=== PATIENT | male | born 1975 | race Two or more races ===

== ENCOUNTER 2017-06-24 06:23 | Emergency (ER) | payer OTHER ==
[2017-06-24 06:27] VITALS: RESP 16; O2SAT 97
[2017-06-24] MEDS ORDERED: ACETAMINOPHEN 500 MG TAB PO ONE (06:40)
[2017-06-24] MEDS ORDERED: KETOROLAC 15 MG/1 ML SDV IVP ONE (06:40)
[2017-06-24] MEDS ORDERED: LIDOCAINE 1% 100 MG in NS 100 ML IV ONE (06:40)
[2017-06-24] MEDS ORDERED: NS 1,000 ML IV ONE ×2 (06:40)
[2017-06-24 06:51] LABS: % IMMATURE GRANULYOCYTES 0.2 % (0.0-1.1); ABSOLUTE IMMATURE GRANULOCYTES 0.02 10^3/uL (0.00-0.10); ADD DIFF? NO; ADD MORPH? NO; ADD SCAN? NO; ATYPICAL LYMPHOCYTE FLAG 10 (0-99); FRAGMENT RBC FLAG 0 (0-99); HEMATOCRIT 47.1 % (40.0-51.0); HEMOGLOBIN 17.2 g/dL (13.7-17.5); LEFT SHIFT FLG 0 (0-99); LIPEMIA HEMOLYSIS FLAG 90 (0-99); MEAN CELL HEMOGLOBIN 30.7 pg (27.9-34.1); MEAN CELL HEMOGLOBIN CONCENTR. 36.5 g/dL (32.4-36.7); MEAN PLATELET VOLUME 8.7 fL (8.7-11.7); PLATELET CLUMPS FLAG 0 (0-99); PLATELET COUNT 300 10^3/uL (150-400); RED BLOOD CELL COUNT 5.61 10^6/uL (4.40-6.38)
[2017-06-24 07:10] LABS: ANION GAP 14 mEq/L (8-16); CALCIUM 9.6 mg/dL (8.5-10.4); CARBON DIOXIDE 23 mEq/l (22-31); CHLORIDE 105 mEq/L (97-110); CREATININE 0.8 mg/dL (0.7-1.3); GLOMERULAR FILTRATION RATE > 60; GLUCOSE 124 mg/dL (70-100); POTASSIUM 4.1 mEq/L (3.5-5.2); SODIUM 142 mEq/L (134-144)
--- NOTE | 2017-06-24 07:11 | EDPHY ---
HPI/HX/ROS/PE/MDM Narrative: CHIEF COMPLAINT: Flank pain HPI: The patient is a 42 y/o male arriving with his complaining of waxing and waning left flank pain onset 2 hours ago. He has a history of a prior 1mm ureteral stone 2 years ago that was diagnosed on CT here and did not require intervention. He has a small amount of associated hematuria. His symptoms feel the same as his prior kidney stone. He denies abdominal pain, testicular pain, vomiting, diarrhea, fever, or other symptoms. He is otherwise healthy. REVIEW OF SYSTEMS: Aside from elements discussed in the HPI, a comprehensive 10-point review of systems was reviewed and is negative. PMH: Kidney stone Prior medical records reviewed including ED visit 02/16/15 for flank pain, kidney stone. SOCIAL HISTORY: Nonsmoker. at bedside. PHYSICAL EXAM: General:Patient is alert, in no acute distress. ENT:Eyes are normal to inspection. ENT inspection normal. Neck: Normal inspection. Full range of motion. Respiratory:No respiratory distress. Breath sounds normal bilaterally. Cardiovascular: Regular rate and rhythm. Strong peripheral pulses. Normal cap refill. Abdomen:The abdomen has mild LLQ tenderness to palpation. There are no peritoneal signs. Back: Normal to inspection. No tenderness to palpation. Skin: Normal color. No rash. Warm and dry. Extremities: Normal appearance. Full range of motion. Neuro: Oriented x3. Normal motor function. Normal sensory function. ED Course: MDM:This is a 42 y/o male who presents with left-sided flank pain and mild LLQ abdominal tenderness. His symptoms feel exactly the same as his prior kidney stone. IV established. Basic labs negtive. Patient treated with 2L IV NS, 15mg IV Toradol, 100mg IV lidocaine, and 1000mg PO Tylenol. Given hematuria, normal labs and pain consistent with kidney stone in setting of prior history, I do not think imaging is indicated. - Data Points Laboratory Results: Laboratory Results 06/24/17 06:44 06/24/17 06:44 06/24/17 06/24/17 06/24/17 08:10 06:44 06:44 WBC 8.02 10^3/uL 10^3/uL (3.80-9.50) RBC 5.61 10^6/uL 10^6/uL (4.40-6.38) Hgb 17.2 g/dL g/dL (13.7-17.5) Hct 47.1 % % (40.0-51.0) MCV 84.0 fL fL (81.5-99.8) MCH 30.7 pg pg (27.9-34.1) MCHC 36.5 g/dL g/dL (32.4-36.7) RDW 12.0 % % (11.5-15.2) Plt Count 300 10^3/uL 10^3/uL (150-400) MPV 8.7 fL fL (8.7-11.7) Neut % (Auto) 46.7 % % (39.3-74.2) Lymph % (Auto) 41.3 % % (15.0-45.0) [place] % (Auto) 9.0 % % (4.5-13.0) Eos % (Auto) 2.4 % % (0.6-7.6) Baso % (Auto) 0.4 % % (0.3-1.7) Nucleat RBC Rel Count 0.0 % % (0.0-0.2) Absolute Neuts (auto) 3.75 10^3/uL 10^3/uL (1.70-6.50) Absolute Lymphs (auto) 3.31 10^3/uL H 10^3/uL (1.00-3.00) Absolute Monos (auto) 0.72 10^3/uL 10^3/uL (0.30-0.80) Absolute Eos (auto) 0.19 10^3/uL 10^3/uL (0.03-0.40) Absolute Basos (auto) 0.03 10^3/uL 10^3/uL (0.02-0.10) Absolute Nucleated RBC 0.00 10^3/uL 10^3/uL (0-0.01) Immature Gran % 0.2 % % (0.0-1.1) Immature Gran # 0.02 10^3/uL 10^3/uL (0.00-0.10) Sodium 142 mEq/L mEq/L (134-144) Potassium 4.1 mEq/L mEq/L (3.5-5.2) Chloride 105 mEq/L mEq/L (97-110) Carbon Dioxide 23 mEq/l mEq/l (22-31) Anion Gap 14 mEq/L mEq/L (8-16) BUN 19 mg/dL mg/dL (7-23) Creatinine 0.8 mg/dL mg/dL (0.7-1.3) Estimated GFR > 60 Glucose 124 mg/dL H mg/dL (70-100) Calcium 9.6 mg/dL mg/dL (8.5-10.4) Urine Color Pending Urine Appearance Pending Urine pH Pending Ur Specific [place] Pending Urine Protein Pending Urine Ketones Pending Urine Blood Pending Urine Nitrate Pending Urine Bilirubin Pending Urine Urobilinogen Pending Ur Leukocyte Esterase Pending Urine Glucose Pending Medications Given: Discontinued Medications Acetaminophen (Tylenol) 1,000 mg PO EDNOW ONE Stop: 06/24/17 06:41 Last Admin: 06/24/17 06:56 Dose: 1,000 mg Sodium Chloride (Ns) 1,000 mls @ 0 mls/hr IV ONCE ONE; Wide Open PRN Reason: Protocol Stop: 06/24/17 06:41 Last Admin: 06/24/17 06:56 Dose: 1,000 mls Sodium Chloride (Ns) 1,000 mls @ 0 mls/hr IV ONCE ONE; Wide Open PRN Reason: Protocol Stop: 06/24/17 06:41 Last Admin: 06/24/17 06:57 Dose: 1,000 mls Lidocaine HCl 100 mg/ Sodium (Chloride) 110 mls @ 600 mls/hr IV EDNOW ONE Stop: 06/24/17 06:50 Last Admin: 06/24/17 07:54 Dose: Not Given Ketorolac Tromethamine (Toradol) 15 mg IVP EDNOW ONE Stop: 06/24/17 06:41 Last Admin: 06/24/17 06:56 Dose: 15 mg General Time Seen by Provider: 06/24/17 06:40 Initial Vital Signs: Initial Vital Signs Temperature (C) 36.7 C 06/24/17 06:24 Heart Rate 95 06/24/17 06:24 Respiratory Rate 16 06/24/17 06:24 Blood Pressure 152/97 H 06/24/17 06:24 O2 Sat (%) 97 06/24/17 06:24 O2 Delivery Mode Room Air Allergies/Adverse Reactions: No Known Allergies Allergy (Unverified 02/16/15 04:40) Home Medications: Medication Instructions Recorded Hydrocodone/APAP 5/325 [[place] 1 - 2 tab PO Q4-6PRN PRN #20 tab 02/16/15 5/325 (*)] Ibuprofen [Motrin (*)] 600 mg PO Q6PRN PRN #20 tab 02/16/15 Ondansetron Odt [Zofran Odt 4 mg 4 mg PO Q4PRN PRN #10 tab 02/16/15 (*)] Tamsulosin HCl [Flomax 0.4 MG (*)] 0.4 mg PO DAILY #4 cap 02/16/15 Ketorolac Tromethamine [Toradol] 10 mg PO Q6H #16 tab 06/24/17 oxyCODONE/APAP 5/325 [Percocet 1 - 2 tab PO Q4H PRN #10 tab 06/24/17 5/325] Departure - Departure Disposition: Home, Routine, Self-Care Clinical Impression: Kidney stone on left side Condition: Good Instructions: Kidney Stones (ED), How to Strain Your Urine (ED), Flank Pain (ED ) Additional Instructions: 1. Take Toradol as prescribed. Do not take anything containing ibuprofen (Advil ) while using this medication. 2. Percocet as needed for severe pain 3. Strain urine as directed 4. Return to the Emergency Department for uncontrollable pain, fever, or vomiting 5. Please contact the urologist you have been referred to schedule a follow-up visit. 1. [place] Toradol belrin se le receto. No tome nada que contenga ibuprpfen(Advil) mientras use reny medicamento. 2.Percocet [place] sea necesario para el dolor. 3. Filtre la [place]ina [place] se le indico. 4.Regrese al Departamento de Emergencias por dolor incontrolable, fiebre, o vomito. 5. Por favor contacte al Urologo con el cual se le refirio para programar faustino martha de suguimiento. Referrals: Abigail Ch MD [Primary Care Provider] - As per Instructions Yonny Turner MD [Medical Doctor] - As per Instructions Prescriptions: Ketorolac Tromethamine [Toradol] 10 mg PO Q6H #16 tab oxyCODONE/APAP 5/325 [Percocet 5/325] 1 - 2 tab PO Q4H PRN #10 tab PRN Reason: Pain, Severe Report Scribed for: Sameer Mark Report Scribed by: Evelyne Kang Date of Report: 06/24/17 Time of Report: 07:11 Physician Review and Approval Statement: Portions of this note were transcribed by an ED scribe. I personally performed the history, physical exam, and medical decision making; and confirm the accuracy of the information in the transcribed note.
[2017-06-24 08:21] LABS: COLOR PALE YELLOW; LEUKOCYTE ESTERASE,URINE NEGATIVE (NEGATIVE); NITRITE,URINE NEGATIVE (NEGATIVE)
[2017-06-24 08:26] LABS: RBC,URINE 50-182 /hpf (0-3)
[2017-06-24 09:07] VITALS: PULSE 90
[2017-06-24 09:13] VITALS: BP 144/84; TEMP 98.4
== END 2017-06-24 09:13 | disposition home or self-care (01) ==
DX: N20.0 Calculus of kidney (principal); E86.9 Volume depletion, unspecified
CPT/HCPCS: 96374; J1885